=== PATIENT | male | born 1990 | race African-American/Black ===

== ENCOUNTER 2024-06-06 17:16 | Inpatient (IN) | payer OTHER ==
[2024-06-06] MEDS ORDERED: MORPHINE SULFATE/PF 10MG/10ML VL IVP PRN (18:04)
--- NOTE | 2024-06-06 18:04 | ED ---
General Adult HPI - General Chief complaint: Extremity Injury, Lower Stated complaint: R calf pain Time Seen by Provider: 06/06/24 17:23 Source: patient Mode of arrival: wheelchair Limitations: no limitations - History of Present Illness Initial comments: Dictation was produced using [employer] dictation software. please excuse any grammatical, word or spelling errors. Chief Complaint: 33-year-old male with right calf pain History of Present Illness: Patient is 33-year-old male 1 hour ago he started to feel sharp pain in his right calf. Patient states that the pain started to get worse making it difficult for him to even bear weight. Denies any bruising. Patient concerned complaint of paresthesias to his right foot. States that the pain is already get worse wrapping around to the front of his lower leg has history of asthma. No other comorbidities. The ROS documented in this emergency department record has been reviewed and confirmed by me. Those systems with pertinent positive or negative responses have been documented in the HPI. All other systems are other negative and/or noncontributory. - Related Data Allergies Allergy/AdvReac Type Severity Reaction Status Date / Time shellfish derived [Shellfish] Allergy Rash/Hives Verified 06/06/24 17:21 Review of Systems ROS Statement: Those systems with pertinent positive or pertinent negative responses have been documented in the HPI. ROS Other: All systems not noted in ROS Statement are negative. Past Medical History Past Medical History: Asthma Additional Past Medical History / Comment(s): sleep apnea Past Surgical History: No Surgical Hx Reported Smoking Status: Current every day smoker Past Alcohol Use History: Abuse Past Drug Use History: Marijuana General Exam - General Exam Comments Initial Comments: PHYSICAL EXAM: General Impression: Alert and oriented x3, not in acute distress HEENT: Normocephalic atraumatic, extra-ocular movements intact, pupils equal and reactive to light bilaterally, mucous membranes moist. Cardiovascular: Heart regular rate and rhythm Chest: Able to complete full sentences, no retractions, no tachypnea Abdomen: abdomen soft, non-tender, non-distended, no organomegaly Musculoskeletal: Pulses present and equal in all extremities, no peripheral edema Motor: no focal deficits noted Neurological: CN II-XII grossly intact, no focal motor or sensory deficits noted Skin: Intact with no visualized rashes Psych: Normal affect and mood Right lower Extremity; Tight compartments, extremely tight and swollen right calf area Limitations: no limitations Course Vital Signs 06/06/24 17:18 Temperature 97.6 F Pulse Rate 88 Respiratory 16 Rate Blood Pressure 104/68 O2 Sat by Pulse 98 Oximetry - Reevaluation(s) Reevaluation #1: 06/06/24 18:05 Case discussed in detail with [facility]. States that he would recommend that this patient be transferred. Case was discussed with Dr. Watkins from vascular surgery states that this should be an orthopedic issue. Case was then discussed with Dr. Moore of the other Ortho group states that we should try to contact attending physician because this should be taken care of by on-call orthopedic group and that it is an orthopedic issue. Medical Decision Making - Medical Decision Making Was pt. sent in by a medical professional or institution (, [facility], ENGLISH [employer]ANGUAGE [employer]S TEACHER, urgent care, hospital, or care home...) When possible be specific @ -No Did you speak to anyone other than the patient for history (EMS, parent, family, police, friend...)? What history was obtained from this source @ -No Did you review nursing and triage notes (agree or disagree)? Why? @ -I reviewed and agree with nursing and triage notes Were old charts reviewed (outside hosp., previous admission, EMS record, old EKG, old radiological studies, urgent care reports/EKG's, care home records)? Report findings @ -No old charts were reviewed Differential Diagnosis (chest pain, altered mental status, abdominal pain women, abdominal pain men, vaginal bleeding, musculoskeletal, weakness, fever, dyspnea, syncope, headache, dizziness, GI bleed, back pain, seizure, CVA, palpatations, mental health)? @ -Calf tear, Achilles rupture, compartment syndrome EKG interpreted by me (3pts min.). @ -None done X-rays interpreted by me (1pt min.). @ -Hip x-ray shows no occult fractures CT interpreted by me (1pt min.). @ -None done U/S interpreted by me (1pt. min.). @ -None done What testing was considered but not performed or refused? (CT, X-rays, U/S, labs)? Why? @ -None What meds were considered but not given or refused? Why? @ -None Was smoking cessation discussed for >3mins.? @ -No Were there social determinants of health that impacted care today? How? (Homelessness, low income, unemployed, alcoholism, drug addiction, tr ansportation, low edu. Level, literacy, decrease access to med. care, custodial, rehab)? @ -No Was there de-escalation of care discussed even if they declined (Discuss DNR or withdrawal of care, Hospice)? DNR status @ -No What co-morbidities impacted this encounter? (DM, HTN, Smoking, COPD, CAD, Cancer, CVA, ARF, Chemo, Hep., AIDS, mental health diagnosis, sleep apnea, morbid obesity)? @ -None Was patient admitted / discharged? Hospital course, mention meds given and route, prescriptions, significant lab abnormalities, going to OR and other pertinent info. @ - 33-year-old male with painful right calf. Vital signs stable. Physical examination concerning for compartment syndrome. Patient was evaluated bedside by Dr. Goodman stephenson. Dr. Null will take patient to the OR for fasciotomy Did you discuss the management of the patient with other professionals (professionals i.e. , PA, ENGLISH LANGUAGE ARTS TEACHER, lab, RT, psych nurse, renal social worker, peeled potato inspector, teacher, tourist information officer, protective services case worker)? Give summary @ -See above Was critical care preformed (if so, how long)? @ -Yes, 33 minutes Undiagnosed new problem with uncertain prognosis? @ -No Drug Therapy requiring intensive monitoring for toxicity (Heparin, Nitro, Insulin, Cardizem)? @ -No Were any procedures done? @ -No Diagnosis/symptom? Acute, or Chronic, or Acute on Chronic? Uncomplicated (without systemic symptoms) or Complicated (systemic symptoms)? @ -Acute complicated compartment syndrome Side effects of treatment? @ -No Exacerbation, Progression, or Severe Exacerbation? @ -No Poses a threat to life or bodily function? How? (Chest pain, USA, MD, pneumonia, PE, COPD, DKA, ARF, appy, cholecystitis, CVA, Diverticulitis, Homicidal, Suicidal, threat to staff... and all critical care pts) @ -yes Disposition Clinical Impression: Compartment syndrome Disposition: ADMITTED IP TO THIS [facility] Condition: Critical Referrals: Nonstaff,Physician [Primary Care Provider] - 1-2 days Decision Time: 19:01
--- NOTE | 2024-06-06 18:07 | XR ---
EXAMINATION TYPE: XR tibia fibula RT DATE OF EXAM: 06/06/2024 COMPARISON: None HISTORY: Calf pain TECHNIQUE: 2 view right tibia and fibula FINDINGS: No acute fractures or dislocations evident. Joint spaces appear preserved. Soft tissues jairon ear normal. Follow up exams can be performed 7-10 days from acute trauma for continued pain. IMPRESSION: 1. No acute osseous abnormality right tibia and fibula
[2024-06-06] MEDS ORDERED: NALOXONE 0.4 MG/ML 1 ML VIAL IV PRN ×2 (18:58→21:26)
[2024-06-06] MEDS ORDERED: MORPHINE SULFATE 4 MG/ML SYRINGE IV PRN (18:58)
[2024-06-06 18:59] LABS: INR 1.1 (<1.2); Partial Thromboplastin Time 25.5 sec (22.0-30.0); Prothrombin Time 11.6 sec (10.0-12.5)
[2024-06-06 19:00] LABS: Basophils % (A) 0 %; Eosinophils # (A) 0.5 k/uL (0-0.7); Eosinophils % (A) 7 %; HCT 41.5 % (39.0-53.0); HGB 13.9 gm/dL (13.0-17.5); Lymphocytes # (A) 2.4 k/uL (1.0-4.8); Lymphocytes % (A) 31 %; MCH 34.2 pg (25.0-35.0); MCHC 33.6 g/dL (31.0-37.0); MCV 101.9 fL (80.0-100.0); Macrocytosis Slight; Monocytes # (A) 0.6 k/uL (0-1.0); Monocytes % (A) 8 %; Neutrophils # (A) 3.9 k/uL (1.3-7.7); Neutrophils % (A) 51 %; Platelet Count 227 k/uL (150-450); RBC 4.07 m/uL (4.30-5.90); RDW 13.3 % (11.5-15.5); WBC 7.6 k/uL (3.8-10.6)
[2024-06-06 19:04] LABS: African American GFR (CKD) >90 (>60 ml/min/1.73 sqM); Anion Gap 8 mmol/L; Blood Urea Nitrogen 16 mg/dL (9-20); Calcium 9.7 mg/dL (8.4-10.2); Carbon Dioxide 19 mmol/L (22-30); Chloride 106 mmol/L (98-107); Glucose 85 mg/dL (74-99); Non-African American GFR(CKD) >90 (>60 ml/min/1.73 sqM); Potassium 4.3 mmol/L (3.5-5.1); Sodium 133 mmol/L (137-145)
--- NOTE | 2024-06-06 19:09 | P.HPOR ---
History of Present Illness H&P Date: 06/06/24 Chief Complaint: RLE PAIN 33 yo male with hx of asthma, DENEEN on cpap and ETOH abuse presents from [place] with RLE pain and paresthesias. Earlier today he was playing volleyball when he stepped and felt a tearing sensation in his right calf and lower leg as well as a pop. He stated he continued to play on it for a little while but it keept getting worse and worse to the point of not being able to walk on it and having severe pain. He presented to the ED with this pain as well as swelling of the right lower leg. He states numbness and tingling that is starting to go across his toes and into the top of his foot and states that his toes are starting to feel cold. He denies any other injury and states no f/c/sob/cp at this time. He states the pain is getting worse with the swelling and it is getting harder and harder to control. Review of Systems 14 points review of systems completed and as stated in HPI, all other systems reviewed are negative. Past Medical History Past Medical History: Asthma Additional Past Medical History / Comment(s): sleep apnea Past Surgical History: No Surgical Hx Reported Smoking Status: Current every day smoker Past Alcohol Use History: Abuse Past Drug Use History: Marijuana Medications and Allergies Allergies Allergy/AdvReac Type Severity Reaction Status Date / Time shellfish derived [Shellfish] Allergy Rash/Hives Verified 06/06/24 17:21 Physical Examination Osteopathic Statement: *. No significant issues noted on an osteopathic structural exam other than those noted in the History and Physical/Consult. Physical Exam: -Patient is alert and oriented 3 appears well-nourished well-hydrated is in no acute distress. They do not appear septic. -There is TTP of the right calf that is very swollen and taut. He has 10/10 pain with motion of the ankle and palpation of the calf and TA muscles -Upper extremities show [5] out of 5 strength in all major muscle groups. -Lower extremities with [5] out of 5 strength in all major muscle groups Except for DF and PF EHL FHL on the right due to severe pain with any motion of the lower leg on the right. -There is [FROM] that is [painless] of the b/l UE and LE in all major joints. except that stated above of the right lower leg. -They are intact to light touch sensation in C5 to T1 and L2 to S1 nerve distribution. -DTR [2]/4 all upper and lower extremities -Patient has palpable distal pulses all 4 ext. DP and PT on the right are palpable but are 1/4 compared to LLE which are 2/4 -Compartments of the right lower leg are taut, becoming non-compressible and extremely painful to palpation. Absolute pressures >30 on needle measurements of posterior and anterior compartments. LLE compartments are soft and comp ressive. -Patient shows a negative Leidy's of the LLE Cranial nerves II through XII are grossly intact. Respiratory rate is somewhat elevated due to pain during exam. VSS at this time otherwise. Results XR of the right Tib/fib shows no fractures. High degree of swelling noted of the calf and anterior lower leg. Assessment and Plan (1) Compartment syndrome of right lower extremity Current Visit: Yes Status: Acute Code(s): T79.A21A - TRAUMATIC COMPARTMENT SYNDROME OF R LOW EXTREM, INIT SNOMED Code(s): 396563724 (2) Anterior tibial compartment syndrome of right lower extremity Current Visit: Yes Status: Acute Code(s): T79.A21A - TRAUMATIC COMPARTMENT SYNDROME OF R LOW EXTREM, INIT SNOMED Code(s): 781931873 (3) Exertional compartment syndrome of right lower extremity Current Visit: Yes Status: Acute Code(s): M79.A21 - NONTRAUMATIC COMPARTMENT SYNDROME OF RIGHT LOWER EXTREMITY SNOMED Code(s): 237702158759374 Plan: -NPO -Emergent 4 compartment release of the RLE. -Ancef 2 g Pre op -TXA pre op 1g -NWB RLE
--- NOTE | 2024-06-06 19:15 | P.PN ---
Progress Note - Text Progress Note Date: 06/06/24 Orthopedic Surgery Risk Review Marquis Bravo is a 33 yo male presenting for evaluation of sudden onset RLE pain, inability to ambulate after playing volleyball. It was my pleasure to have seen and examined Marquis Bravo . In our visit today we have had a chance to go over subjective complaints, physical examination findings and treatments including the natural course history without intervention and various interventional options. His imaging demonstrates no acute fracture. Profound swelling of the RLE. On physical exam, Marquis Bravo demonstrates pain with motion of RLE with taut minimally compressive compartments which are progressively getting worse. Paresthesias of the right foot, 1/4 pulses DP and PT palpable RLE with severe pain and progressive out of proportion pain of the RLE. I have explained to the patient that this fracture needs stabilization. Based on the patients imaging, physical exam, and the rapid progression and disabling nature of her symptoms, at this time I recommend surgery in the form or a: RLE 4 compartment faciiotomy I discussed the risk and benefits of this procedure at length with Marquis Bravo . Questions were invited and answered, and the patient wishes to proceed as outlined below. Currently, I am recommendin. EMERGENT Right lower extremity four compartment faciiotomy 2. Review of surgical risks and benefits as well as an educational packet on the proposed surgical procedure. Risks: All surgical procedures come with inherent risks, including those related to positioning, anesthesia, intraoperative findings, and postoperative complications. It is important to understand that surgery does not come with any guarantee of a successful outcome as complications and adverse events are always possible. The patient was given a handout discussing the surgical procedure and risks associated with the intervention, both of which were discussed with the patient. These risks include but are not limited to the following: - Experiencing same, different or even worse symptoms compared to before surgery. - Requiring further surgery or other forms of treatment presently or at some time in the future . - On an extreme but fortunately relatively rare basis severe complication such as blindness, stroke, heart attack, temporary and/or permanent nerve injury, paralysis, coma, or may occur, sometimes without known explanation. - Surgical complications may include but are not limited to risk of infection, fluid accumulation in the surgical dissection site, including a seroma or hematoma, that requires additional surgery, wound drainage, bleeding, new numbness or weakness, vision changes/loss, spinal fluid leakage, non-healing and/or infected incision, headaches, difficulty or inability to swallow, hoarseness, hemopneumothorax, pneumothorax, injury to nerves, spinal cord, blood vessels, lymphatics or other vital organs (i.e., bowel injury, injury to the great vessels); heterotopic bone formation; complications related to the hardware such as screws, rods, including misplaced hardware, device failure, hardware fracture/breakage, or hardware loosening; retained surgical instrumentations or devices and the need for further surgery. - Medical risks of the planned surgery include but are not limited to generalized Infections to the whole body or local areas outside of the surgical site (sepsis), heart attack, bleeding, anaphylaxis, meningitis, seizure, epilepsy, hearing loss, burn peterson, laceration of the head or other areas of the body, bruising, hypersensitivity of the skin, bladder over distension; allergic reaction; shoulder injury related to positioning; fat, blood and air clots to other areas of the body like heart, lungs, brain; failure of internal organs such as lungs, kidneys, liver and excessive bleeding. If blood transfusions are necessary, note that transfusions may cause intolerance reactions such as anaphylaxis or other complex reactions. Despite best efforts, the results of surgery might not heal in terms of bone, soft tissues such as skin, fascia, ligaments, and joints. [facility] has multiple operating rooms with single and overlapping rooms running daily. They currently function under the required guidelines as produced by the Senate [employer] Committee with regards to the overlapping rooms and will continue to comply with changes to this policy as they occur. The requirements include and are complied with as follows: (1) the critical portions of the overlapping rooms will not occur at the same time, (2) the attending physician will be physically present during the critical portions of the procedure and immediately available during the entire case, and (3) a back-up attending is designated should the primary attending not be immediately available. The patient has had a chance to review all the listed information, has been given print outs detailing this information, and has had all his/her questions answered to their satisfaction. It was my pleasure to have seen and examined Marquis Bravo . In our visit today we have had a chance to go over my understanding of our patient's current condition, the natural course history without intervention and various interventional options. Questions were invited and answered, and the patient wi shes to proceed as outlined above. I have seen and examined the patient for 25 minutes and we have spent more than 50% of the time in repeat and detailed counseling about the patient's condition, its natural course history with out and as much as can be predicted with surgery and re-review of various surgical treatment options. In conclusion, Marquis Bravo requested we proceed with the above suggested surgery and are willing to accept risks and limitations of the suggested surgery as nature of the disease process and our best attempts at treatment for the cond ition. Thank you again for allowing us to be part of your patient's care. Please don't hesitate to contact me if you have any further questions. Signed and authenticated by: Basilio Pollack [facility] [address] [address]
[2024-06-06] MEDS ORDERED: fentaNYL (PF) 50 MCG/ML 2 ML AMP ONE (19:52)
[2024-06-06] MEDS ORDERED: ONDANSETRON 4 MG/2 ML VIAL ONE (19:52)
[2024-06-06] MEDS ORDERED: MIDAZOLAM 2 MG/2 ML VIAL ONE (19:52)
[2024-06-06] MEDS ORDERED: HYDROmorphone (PF) 1 MG/ML ONE (19:52)
[2024-06-06] MEDS ORDERED: PROPOFOL 10 MG/ML 20 ML VIAL IV ONE (19:52)
[2024-06-06] MEDS ORDERED: TRANEXAMIC 1,000 MG/100ML-NACL PREMIX BAG ONE (19:52)
[2024-06-06] MEDS ORDERED: LIDOCAINE 1% INJ 10MG/ML (20 ML MDV) ONE (19:52)
[2024-06-06] MEDS: LACTATED RINGERS 900 ML IV ONE (19:52)
--- NOTE | 2024-06-06 21:25 | P.OP ---
Date of Procedure: 06/06/24 Preoperative Diagnosis: Current Active Problems Anterior tibial compartment syndrome of right lower extremity (Acute) Compartment syndrome (Acute) Compartment syndrome of right lower extremity (Acute) Exertional compartment syndrome of right lower extremity (Acute) Postoperative Diagnosis: Current Active Problems Intramuscular hematoma (Acute) Compartment syndrome of right lower extremity (Acute) Anterior tibial compartment syndrome of right lower extremity (Acute) Exertional compartment syndrome of right lower extremity (Acute) Compartment syndrome (Acute) Procedure(s) Performed: 4 COMPARTMENT FACIIOTOMY RIGHT LOWER LEG EVACUATION OF HEMATOMA RIGHT LOWER LEG IRRIGATION AND DEBRIDEMENT OF RIGHT LOWER LEG SKIN, SOFT TISSUE, FACIA AND MUSCLE USING SKIN KNIFE, IRRIGANT, CURETTES PLACEMENT OF WOUND VAC RIGHT LOWER LEG Implants: WOUND VAC RIGHT LOWER LEG Anesthesia: MAC Surgeon: Basilio Null Estimated Blood Loss (ml): 260 IV fluids (ml): 1,500 Urine output (ml): 0 Pathology: none sent Condition: stable Disposition: PACU Indications for Procedure: Marquis Bravo is a 33 yo male presenting for evaluation of sudden onset RLE pain, inability to ambulate after playing volleyball. It was my pleasure to have seen and examined Marquis Bravo . In our visit today we have had a chance to go over subjective complaints, physical examination findings and treatments including the natural course history without intervention and various interventional options. His imaging demonstrates no acute fracture. Profound swelling of the RLE. On physical exam, Marquis Bravo demonstrates pain with motion of RLE with taut minimally compressive compartments which are progressively getting worse. Paresthesias of the right foot, 1/4 pulses DP and PT palpable RLE with severe pain and progressive out of proportion pain of the RLE. I have explained to the patient that this fracture needs stabilization. Based on the patients imaging, physical exam, and the rapid progression and disabling nature of her symptoms, at this time I recommend surgery in the form or a: RLE 4 compartment faciiotomy I discussed the risk and benefits of this procedure at length with Marquis Bravo . Questions were invited and answered, and the patient wishes to proceed as outlined below. Currently, I am recommendin. EMERGENT Right lower extremity four compartment faciiotomy Description of Procedure: The patient was seen and examined in the preoperative area. All preoperative protocols were followed. Informed consent was obtained risks and benefits of the procedure were discussed at length. Risks including bleeding infection damage to the surrounding tissue and risk of reoperation were discussed with the patient. Risk of anesthesia up to and including was a discussed with the patient. These are outlined in the risk reviewed. They were willing to accept these risks and all of the risks of surgery. The patient was given a weight- based dose of antibiotics in the form of 2 g Ancef. The patient was seen and evaluated by the anesthesia team who deemed them fit for surgery. The site was marked, the patient was willing to proceed with the procedure. The patient was transferred to the operative suite by the Department of anesthesia. There were then drifted off to sleep by the department of anesthesia and [facility] was used. Once adequate anesthesia had been obtained the patient was carefully transferred to the operative bed. All bony prominences were padded accordingly. SCDs were placed on the nonoperative lower extremities. Arms were well padded. Right lower extremity was exposed and placed on a bone foam ramp which was secured to the table. A bump was placed in the patient's right hip. Preoperative briefing was done with the operative team and everyone was ready for the procedure to start. The patients Right leg was then prepped and draped in the normal sterile fashion. Timeout was then performed and all parties in agreement with the procedure to be performed. Longitudinal anterior lateral incision was made for anterior and lateral compartment release. Incision was made between the tibial crest and the fibula. Dissection was taken on the fascia was identified the intermuscular septum was identified. Small neck and intermuscular septa was made anterior to the intermuscular septum and a Williamson scissors introduced into this area and the fascia was then released taking care to preserve the superficial peroneal nerve. We have performed this on the lateral compartment just posterior to the intermuscular septum. Complete fascial release was achieved proximally and distally. Muscle is viable and good coloration. We then turned our attention to the medial compartment and the posterior compartment. Longitudinal incision was made to centers posterior to the tibial crest. Dissection taken down to the saphenous nerve and vein were identified and mobilized were retracted. Fasciotomy was then made using Williamson scissors a similar fashion proximally and distally this revealed extremely swollen and damaged muscle tissue. Blunt disse ction was then used to release the posterior compartment deep as well as superficial. The superficial posterior compartment there was a large intramuscular hematoma which was expressed in between the gastroc medial head and the soleus. The medial head of the gastroc was extremely swollen and appeared to be torn in several areas secondary to his presumed injury. There were bleeding vessels identified distally which were clamped and then cauterized deep bleeding vessels were also clamped and clipped. These were all tributaries from the posterior tibial. Doppler of the posterior tibia at the ankle was then done and there was good dopplerable as well as palpable pulse. The dorsalis pedis pulse is also palpable and dopplerable in this area. Toes all had brisk capillary refill less than 2 seconds. The wounds were then thoroughly irrigated with nORMAL STERILE SALINE. The lateral incision was then closed under little to no tension deep subcu tissue was closed with 0 Vicryl superficial subcu tissue closed with 2-0 Vicryl and skin closed with a running trauma 2-0 nylon. The medial incision was too taut for closure however some stay sutures were placed to prevent skin retraction. The wound were then cleaned well and A wound VAC was then selected and placed over the medial incision. Wound VAC dressing was then placed along with Adaptic 4 x 4 ABDs on the lateral incision. Once the wound VAC was attached there was good seal and no leaks. This is then overwrapped with a light Chris wrap to aid in swelling. The patient was then transferred back to their hospital bed. There were awakened by department of anesthesia having tolerated the procedure very well with no complications. The patient was then transported to the postoperative care unit in stable condition.
[2024-06-06] MEDS ORDERED: RX INFO: IV CONTRAST WAS GIVEN 1 EACH MISC MISCELLANE PRN (21:31)
--- NOTE | 2024-06-06 21:41 | P.PN ---
Progress Note - Text Progress Note Date: 06/06/24 (\) Postop: . Patient seen and examined they are doing well. Their pain is under control at this time. They are moving all 4 extremities without any issues. Vital signs are stable.. They are currently recovering and will be transferred to the floor once deemed stable by the PACU team and anesthesiologist. No Other issues at this time they deny fever chills shortness of breath or chest pain. Patient is following commands and wiggling toes he has sensation in all aspects of the right lower extremity. Palpable DP and PT pulses. Brisk capillary refill. [Medical management pending] [Continue with intravenous fluids, pain medication, muscle relaxers, home medication] [Soft diet to start to advance as tolerated] We will evaluate the patient in the morning.
[2024-06-06] MEDS: SODIUM CHLORIDE 0.9% 1,000 ML IV SCH ×2 (22:43→23:33)
[2024-06-06] MEDS: diphenhydrAMINE 50 MG/ML 1 ML VIAL IVP STA ×2 (23:00→23:59)
[2024-06-06] MEDS: HYDROmorphone PCA 10 MG/50 ML BAG IV PRN (23:04)
[2024-06-06] MEDS: TRANEXAMIC ACID 1,000 MG in SODIUM CHLORIDE 0.9% 100 ML IVPB ONE ×2 (23:13→23:14)
[2024-06-06] MEDS: ACETAMINOPHEN IV (For NPO) 1,000 MG in EMPTY BAG 1 BAG IVPB SCH (23:57)
[2024-06-07] MEDS: GABAPENTIN 300 MG CAP PO SCH (00:11)
[2024-06-07] MEDS: LORazepam 2 MG/ML INJ IV STA (01:14)
[2024-06-07] MEDS ORDERED: LORazepam 0.5 MG TAB PO PRN (02:31)
[2024-06-07] MEDS ORDERED: LORazepam 2 MG/ML INJ IV PRN ×2 (02:31)
--- NOTE | 2024-06-07 03:12 | P.CONS ---
History of Present Illness - Reason for Consult Consult date: 06/07/24 medical management - Chief Complaint right leg compartment syndrome - History of Present Illness Patient is a 33-year-old male with with chronic alcohol abuse, was admitted here due to right lower extremity swelling secondary to acute compartment syndrome. Patient status post right lower extremity fasciotomy postop day 0. Patient seen at bedside no acute complaints of pain. However, he has ongoing complaint of diffuse pruritus. He states it occurred as soon as he finished surgery yesterday. Is causing the take off his close and get out of bed. States this has never happened before. Denies any symptoms of shortness of breath, chest pain, swelling, fever, chills, nausea, headache, confusion. Last alcoholic beverage was 9 days ago Review of systems: Pertinent positives and negatives as discussed in HPI, a complete review of systems was performed and all other systems are negative. Social history: Tobacco: Current 1 pack/day smoker for the past 10 years Alcohol: Patient states he drinks 2-3 fifths of shilpi daily, states he quit Thursday Recreational drugs: Denies drug use Physical examination: Vital signs reviewed General: non toxic, appears at stated age, obese, appears agitated, constantly itching Derm: no unusual rashes/lesions, warm, multiple diffuse excoriations Head: atraumatic, normocephalic, symmetric Eyes: EOMI, anicteric sclera, pupils equal round reactive to light Cardiovascular: S1S2 reg, no murmur, no edema Lungs: CTA bilateral, no rhonchi, no rales, no accessory muscle use Abdominal: soft, non-tender to palpation, no guarding Ext: muscle strength 5 out of 5 in all 4 extremities grossly, with some limitations over the right lower extremity due to surgery no gross muscle atrophy, wound dressing on right lower extremity Neuro: CN II-XI grossly intact, no gross focal neuro deficits Psych: Alert and oriented to person, place, and time Assessment/Plan: Patient is a 33-year-old male with with chronic alcohol abuse, was admitted here due to right lower extremity swelling secondary to acute compartment syndrome. Patient status post right lower extremity fasciotomy postop day 0. #. Pruritus, unknown etiology No signs of allergic reaction or anaphylaxis Was given Benadryl 25 mg IVP once Continue to monitor symptoms Benadryl 25 mg IV push every 6 hours as needed for itching #. Chronic alcohol abuse [facility] protocol Ativan as needed per [facility] protocol Thiamine 100 mg p.o. daily Seizure and fall precaution #. Normal anion gap metabolic acidosis #. Mild hyponatremia Patient asymptomatic Likely due to excess fluid infusion Continue to monitor BMP #. History of asthma Continue singular 10 mg tab p.o. daily Continue Spiriva 1 Inhalation daily #. History of anxiety Lexapro continue 10 mg p.o. daily #. Status post right lower extremity fasciotomy Being seen by wound care Being managed by primary surgery service Defer management of pain control and DVT prophylaxis to primary surgery service. Rest of labs unremarkable, no pertinent imaging F: NS at 20 cc/hr E: Replete electrolytes as needed N: Currently NPO A: Patient ambulatory Past Medical History Past Medical History: Asthma Additional Past Medical History / Comment(s): sleep apnea Past Surgical History: No Surgical Hx Reported Smoking Status: Current every day smoker Past Alcohol Use History: Abuse Past Drug Use History: Marijuana Medications and Allergies Home Medications Medication Instructions Recorded Confirmed Type Albuterol Inhaler [Ventolin Hfa 1 - 2 puff INHALATION Q6H PRN 06/06/24 06/06/24 History Inhaler] Albuterol Nebulized [Ventolin 1 neb BID PRN 06/06/24 06/06/24 History Nebulized] Chlorpheniramine Maleate 4 mg PO Q4HR PRN 06/06/24 06/06/24 History [Chlor-Trimeton] Escitalopram [Lexapro] 10 mg PO DAILY 06/06/24 06/06/24 History Fluticasone Nasal [place] [Flonase 2 spray EA NOSTRIL DAILY 06/06/24 06/06/24 History Nasal [place]] Ibuprofen [Motrin] 600 mg PO Q6HR PRN 06/06/24 06/06/24 History Menthol [Icy Hot] 1 patch TRANSDERM DAILY PRN 06/06/24 06/06/24 History Montelukast [Singulair] 10 mg PO DAILY 06/06/24 06/06/24 History Omeprazole 40 mg PO DAILY 06/06/24 06/06/24 History Tiotropium [place] [Spiriva 1 cap INHALATION DAILY 06/06/24 06/06/24 History Handihaler] Allergies Allergy/AdvReac Type Severity Reaction Status Date / Time shellfish derived [Shellfish] Allergy Rash/Hives Verified 06/06/24 20:02 Physical Exam Vitals: Vital Signs Temp Pulse Pulse Pulse Resp BP BP 06/06/24 22:22 97.8 F 90 17 132/70 06/06/24 21:45 95 18 112/68 06/06/24 21:30 90 18 115/57 06/06/24 21:17 97.7 F 97 18 119/63 06/06/24 19:32 97.1 F L 79 18 124/79 06/06/24 17:18 97.6 F 88 16 104/68 Pulse Ox 06/06/24 22:22 93 L 06/06/24 21:45 96 06/06/24 21:30 95 06/06/24 21:17 96 06/06/24 19:32 96 06/06/24 17:18 98 Intake and Output 06/06/24 06/06/24 06/07/24 14:59 22:59 06:59 Intake Total 750 Output Total 260 Balance 490 Intake: IV 750 Output: Estimated Blood Loss 260 Other: Weight 95.254 kg Results CBC & Chem 7: 06/06/24 18:29 06/06/24 18:29 Labs: Abnormal Lab Results - Last 24 Hours (Table) 06/06/24 06/06/24 Range/Units 18:29 18:29 RBC 4.07 L (4.30-5.90) m/uL MCV 101.9 H (80.0-100.0) fL Sodium 133 L (137-145) mmol/L Carbon Dioxide 19 L (22-30) mmol/L Assessment and Plan Assessment: This encounter was supervised by Dr. Amberly solano O2 is utilizing Dr. Flaherty's account due to technical difficulties I saw and examined the patient independently I discussed the case with the resident and agree with H&P and assessment and plan which was amended as needed
[2024-06-07] MEDS: PANTOPRAZOLE 40 MG TABLET PO SCH (06:47)
[2024-06-07] MEDS: LORazepam 2 MG/ML INJ IV PRN (08:21)
[2024-06-07] MEDS: diphenhydrAMINE 50 MG/ML 1 ML VIAL IVP PRN (08:22)
[2024-06-07] MEDS: MONTELUKAST 10 MG TAB PO SCH (08:22)
[2024-06-07] MEDS: ESCITALOPRAM 10 MG TAB PO SCH (08:22)
[2024-06-07] MEDS: IPRATROPIUM 0.5 MG/2.5 ML NEBU INHALATION SCH (09:37)
--- NOTE | 2024-06-07 12:58 | CT ---
EXAMINATION TYPE: CT angio lower extremity RT DATE OF EXAM: 06/07/2024 COMPARISON: None HISTORY: 32-year-old male Intramuscular hematoma. Assess for continued extravasation. TECHNIQUE: Contiguous axial scanning of the right lower extremity performed with IV Contrast, patient injected with 100ml mL of Isovue 370. Coronal and sagittal reconstructions performed. 3-D reconstruc tions generated on a dedicated independent workstation. CT DLP: 1451.2 mGycm Automated exposure control for dose reduction was used. FINDINGS: Prostate gland borderline in size at 4.0 cm. The right-sided internal, external, and common iliac arteries appear patent and normal. PSA, PSA, and SFA appear patent and normal. Prominent bruising and poorly defined hemorrhage along the right lateral aspect of the lower thigh an d knee and in the popliteal fossa and tracking superiorly as well. No evidence of injury of the popliteal artery. Geniculate branches above the knee course through regions of hemorrhage but no active arterial extrav asation is clearly identified. Normal takeoff of the anterior tibial artery and normal tibial peroneal trunk. The posterior tibial artery is slightly hypoplastic but there is a prominent contribution from the pe roneal artery just above the level of the ankle. A couple surgical clips are noted along the medial margin of the posterior tibial artery at the dista l third leg level. Again, no arterial extravasation is identified. There is satisfactory runoff into the foot. Prominent soft tissue injury throughout the leg with generalized soft tissue swelling, bruising, and scattered foci of air especially along the superficial fascia of the proximal to mid leg laterally. E juju is present along the deeper flasher complains as well. No acute or healing fracture is seen. IMPRESSION: 1. A COUPLE SURGICAL CLIPS NOTED ALONG THE MEDIAL MARGIN OF THE POSTERIOR TIBIAL ARTERY AT THE LEVEL OF THE LOWER THIRD LEG LEVEL. 2. THERE IS GENERALIZED SOFT TISSUE SWELLING AND BRUISING THROUGHOUT THE RIGHT LOWER EXTREMITY. EDEMA IS ALSO PRESENT ALONG THE DEEPER FASCIAL PLANES. FOCI OF AIR ESPECIALLY LATERALLY ALONG THE UPPER LE G AND POORLY DEFINED SOFT TISSUE HEMORRHAGE EXTENDING UP ALONG THE LATERAL AND POSTERIOR ASPECT OF TH E KNEE. GIVEN THE DEEPER EDEMA, THE PATIENT SHOULD BE MONITORED TO EXCLUDE THE DEVELOPMENT OF COMPART MENT SYNDROME. NO VASCULAR COMPROMISE IDENTIFIED AT THIS TIME. 3. NO CONVINCING FINDINGS OF ACTIVE ARTERIAL EXTRAVASATION.
--- NOTE | 2024-06-07 13:32 | P.PN ---
Subjective Progress Note Date: 06/07/24 Principal diagnosis: Compartment syndrome right lower extremity, status post 4 compartment fasciotomy, hematoma evacuation, I&D patient was examined today at bedside, he was resting comfortably in his hospital bed. The wound VAC is holding good compression at this time, and Chris bandages present to the right lower extremity. Patient does note some generalized discomfort along the medial aspect of the lower leg. He does feel improvement since before surgery yesterday. He has good sensation throughout the entire extremity. Denies any fevers or chills at this time. He feels that the itching is also improving. Objective - Vital Signs Vital signs: Vital Signs Temp 97.7 F 06/07/24 07:05 Pulse 84 06/07/24 09:47 Resp 18 06/07/24 07:05 BP 112/67 06/07/24 07:05 Pulse Ox 97 06/07/24 07:05 FiO2 Intake & Output 06/06/24 06/07/24 06/07/24 18:59 06:59 18:59 Intake Total 750 Output Total 560 700 Balance 190 -700 Weight 95.254 kg 95.254 kg Intake: IV 750 Output: Urine 300 700 Estimated Blood Loss 260 Other: Voiding Method Urinal Urinal # Voids 1 - Exam Right lower extremity: Chris bandages present to the right lower extremity. Wound VAC is in good position and holding suction at this time. Sensation to light touch throughout the extremity is intact. Dorsalis pedis pulses 2+. The skin is warm to touch. There is some minor swelling noted in the calf region, compartments remain soft and compressible - Labs CBC & Chem 7: 06/06/24 18:29 06/06/24 18:29 Labs: Abnormal Lab Results - Last 24 Hours (Table) 06/06/24 06/06/24 Range/Units 18:29 18:29 RBC 4.07 L (4.30-5.90) m/uL MCV 101.9 H (80.0-100.0) fL Sodium 133 L (137-145) mmol/L Carbon Dioxide 19 L (22-30) mmol/L Assessment and Plan Assessment: Postoperative day #1 status post 4 compartment fasciotomy right lower extremity, hematoma evacuation, I&D right lower extremity Compartment syndrome right lower extremity Plan: Pain control, continue with current medication DVT prophylaxis, medical recommendations appreciated wound care, leave Chris bandage in place at this time, plan for dressing change at bedside on 06/08/2024. Continue to monitor wound VAC suction toe-touch weightbearing right lower extremity encourage incentive spirometer medical recommendations appreciated patient is scheduled for revision I&D with hopeful wound closure on 06/09/2024, will continue to follow during hospital stay Time with Patient: Less than 30
--- NOTE | 2024-06-07 13:57 | P.PN ---
Subjective Progress Note Date: 06/07/24 Hospital course: Patient is a 33-year-old male with a past medical history of chronic daily alcohol abuse, daily marijuana use and asthma/COPD with continued nicotine dependence. He is currently admitted under orthopedic surgery team status post right lower extremity fasciotomy secondary to compartment syndrome. Patient underwent right lower extremity fasciotomy on 06/06/2024 after diagnosis of acute exertional right lower extremity compartment syndrome. We were consulted for medical management throughout hospitalization. Physical exam: Vital signs reviewed and stable. General: Nontoxic, no distress and appears stated age. Derm: Skin warm and dry, normal coloration for ethnicity. Head: Atraumatic, normocephalic and symmetric. Eyes: EOM's intact, no lid lag, and anicteric sclera Mouth: no lip lesions, mucus membranes moist Cardiovascular: regular rate and rhythm with normal S1S2, no murmur, positive posterior tibial pulses bilaterally, and cap refill < 2 seconds. Lungs: Respirations even, regular, and unlabored on room air. Lungs CTA bilaterally, no rhonchi, no rales, no wheezing, and no accessory muscle usage. Abdominal: soft, nontender to palpation, no guarding, no appreciable organomegaly Ext: Movement and sensation intact. No gross muscle atrophy, no edema, no contractures. Wound VAC in place right lower extremity. Neuro: Speech clear, face symmetrical and CN II-XII grossly intact with no noted focal neuro deficits Psych: Alert and oriented to person, place, time, and situation. Appropriate and pleasant affect. Assessment and Plan of Care: Patient is a 33-year-old male with with chronic alcohol abuse, was admitted here due to right lower extremity swelling secondary to acute compartment syndrome. Patient status post right lower extremity fasciotomy postop day 1. Acute exertional right lower extremity compartment syndrome Status post right lower extremity fasciotomy -Management per primary admitting orthopedic surgery team including DVT prophylaxis, pain management, dressing and wound VAC management, weightbearing, and PT/OT. Pruritus, unknown etiology -No signs of allergic reaction or anaphylaxis -Continue to monitor symptoms -Continue IV Benadryl and patient placed on oral Benadryl 25 mg every 6 hours as needed for itching Chronic alcohol abuse Normal anion gap metabolic acidosis, likely secondary to daily alcohol abuse Mild hyponatremia, likely secondary to daily alcohol abuse -Continue monitoring of CIWA scores and patient to be medicated with Ativan 0.5 mg every 4 hours as needed for CIWA score of 4-5, Ativan 1 mg every 4 hours for CIWA score of 6-7, Ativan 2 mg every 3 hours CIWA score of 8-9, and Ativan 2 mg every 2 hours forr CIWA score of 10 or greater. -Thiamine 100 mg daily, and Multivitamin daily, and Folate 1 mg daily -Seizure and fall precautions in place. -Continued close monitoring of electrolytes and replace as needed. -Telemetry monitoring. History of asthma/COPD with continued nicotine dependence -Continue singular 10 mg daily and Spiriva 1 puff Inhalation daily -Recommend smoking cessation. Orders placed for nicotine patch 21 mg daily. History of anxiety -Continue Lexapro 10 mg daily Thank you for allowing us to participate in the care of this pleasant patient. Do not hesitate to contact us with questions. Someone can be reached from the [facility] hospitalist group all hours of the day at [phone] or via [employer]. Patient was seen independently by Nurse Pracitioner. This document was prepared using [employer] dictation software. Please allow for errors in filter tank tender, while rare they do occur. Sachin Kemp NP rendered care for this patient independently, reviewed the findings and plan as documented in the note above. I did not physically speak with or examine the patient on this date. Objective - Vital Signs Vital signs: Vital Signs Temp 97.8 F 06/07/24 02:45 Pulse 88 06/07/24 02:45 Resp 18 06/07/24 02:45 BP 136/88 06/07/24 02:45 Pulse Ox 95 06/07/24 02:45 FiO2 Intake & Output 06/06/24 06/07/24 06/07/24 18:59 06:59 18:59 Intake Total 750 Output Total 560 Balance 190 Weight 95.254 kg 95.254 kg Intake: IV 750 Output: Urine 300 Estimated Blood Loss 260 Other: Voiding Method Urinal - Labs CBC & Chem 7: 06/06/24 18:29 06/06/24 18:29 Labs: Abnormal Lab Results - Last 24 Hours (Table) 06/06/24 06/06/24 Range/Units 18:29 18:29 RBC 4.07 L (4.30-5.90) m/uL MCV 101.9 H (80.0-100.0) fL Sodium 133 L (137-145) mmol/L Carbon Dioxide 19 L (22-30) mmol/L
[2024-06-07] MEDS: NICOTINE 21MG/24HR PATCH TRANSDERM SCH (15:50)
[2024-06-08] MEDS: diphenhydrAMINE 25 MG CAP PO PRN (00:38)
[2024-06-08] MEDS: LORazepam 1 MG TAB PO PRN (02:35)
[2024-06-08] MEDS: THIAMINE 100 MG TAB PO SCH (08:21)
[2024-06-08] MEDS: SENNOSIDES 8.6 MG TAB PO PRN (08:21)
--- NOTE | 2024-06-08 12:52 | P.PN ---
Subjective Progress Note Date: 06/08/24 Principal diagnosis: Compartment syndrome right lower extremity, status post 4 compartment fasciotomy, hematoma evacuation, I&D patient was examined today at bedside, he was resting comfortably in his hospital bed. The wound VAC is holding good compression at this time, and Chris bandages present to the right lower extremity. patient has a little bit more pain in the extremity compared to yesterday. He has good sensation throughout the entire extremity. Denies any fevers or chills at this time. Patient did deal with further itching today, we did discontinue the IV antibiotic. Objective - Vital Signs Vital signs: Vital Signs Temp 98.4 F 06/08/24 08:00 Pulse 84 06/08/24 09:02 Resp 17 06/08/24 08:00 BP 127/71 06/08/24 08:00 Pulse Ox 95 06/08/24 08:00 FiO2 Intake & Output 06/07/24 06/08/24 06/08/24 18:59 06:59 18:59 Output Total 1700 1200 Balance -1700 -1200 Output: Urine 1700 1200 Other: Voiding Method Urinal Toilet Urinal # Voids 1 - Exam Right lower extremity: Chris bandages present to the right lower extremity. Wound VAC is in good position and holding suction at this time. Sensation to light touch throughout the extremity is intact. Dorsalis pedis pulses 2+. The skin is warm to touch. There is some minor swelling noted in the calf region, compartments remain soft and compressible - Labs CBC & Chem 7: 06/06/24 18:29 06/06/24 18:29 Assessment and Plan Assessment: Postoperative day #2 status post 4 compartment fasciotomy right lower extremity, hematoma evacuation, I&D right lower extremity Compartment syndrome right lower extremity Plan: Pain control, continue with current medication DVT prophylaxis, medical recommendations appreciated wound care, leave Chris bandage in current position, continue to monitor wound VAC N.p.o. after midnight toe-touch weightbearing right lower extremity encourage incentive spirometer medical recommendations appreciated patient is scheduled for revision I&D with hopeful wound closure on 06/09/2024, will continue to follow during hospital stay Time with Patient: Less than 30
--- NOTE | 2024-06-08 14:20 | P.PN ---
Subjective Progress Note Date: 06/08/24 Hospital course: Patient is a 33-year-old male with a past medical history of chronic daily alcohol abuse, daily marijuana use and asthma/COPD with continued nicotine dependence. He is currently admitted under orthopedic surgery team status post right lower extremity fasciotomy secondary to compartment syndrome. Patient underwent right lower extremity fasciotomy on 06/06/2024 after diagnosis of acute exertional right lower extremity compartment syndrome. We were consulted for medical management throughout hospitalization. Physical exam: Patient seen and fully evaluated at bedside. He reports moderate pain in right lower extremity rating 7 out of 10 at this time. Wound VAC remains in place. Patient denies any other complaints or concerns at this time. Patient denies having any EtOH withdrawal symptoms at this time. Vital signs reviewed and stable. General: Nontoxic, no distress and appears stated age. Derm: Skin warm and dry, normal coloration for ethnicity. Head: Atraumatic, normocephalic and symmetric. Eyes: EOM's intact, no lid lag, and anicteric sclera Mouth: no lip lesions, mucus membranes moist Cardiovascular: regular rate and rhythm with normal S1S2, no murmur, positive posterior tibial pulses bilaterally, and cap refill < 2 seconds. Lungs: Respirations even, regular, and unlabored on room air. Lungs CTA bilaterally, no rhonchi, no rales, no wheezing, and no accessory muscle usage. Abdominal: soft, nontender to palpation, no guarding, no appreciable organomegaly Ext: Movement and sensation intact. No gross muscle atrophy, no edema, no contractures. Wound VAC in place right lower extremity with mild right sided lower extremity edema and bruising. Neuro: Speech clear, face symmetrical and CN II-XII grossly intact with no noted focal neuro deficits Psych: Alert and oriented to person, place, time, and situation. Appropriate and pleasant affect. Assessment and Plan of Care: Patient is a 33-year-old male with with chronic alcohol abuse, was admitted here due to right lower extremity swelling secondary to acute compartment syndrome. Patient status post right lower extremity fasciotomy postop day 1. Acute exertional right lower extremity compartment syndrome Status post right lower extremity fasciotomy -Management per primary admitting orthopedic surgery team including DVT prophylaxis, pain management, dressing and wound VAC management, weightbearing, and PT/OT. Pruritus, unknown etiology -No signs of allergic reaction or anaphylaxis -Continue to monitor symptoms -Continue IV Benadryl and patient placed on oral Benadryl 25 mg every 6 hours as needed for itching Chronic alcohol abuse Normal anion gap metabolic acidosis, likely secondary to daily alcohol abuse Mild hyponatremia, likely secondary to daily alcohol abuse -Continue monitoring of CIWA scores and patient to be medicated with Ativan 0.5 mg every 4 hours as needed for CIWA score of 4-5, Ativan 1 mg every 4 hours for CIWA score of 6-7, Ativan 2 mg every 3 hours CIWA score of 8-9, and Ativan 2 mg every 2 hours forr CIWA score of 10 or greater. -Thiamine 100 mg daily, and Multivitamin daily, and Folate 1 mg daily -Seizure and fall precautions in place. -Continued close monitoring of electrolytes and replace as needed. -Telemetry monitoring. History of asthma/COPD with continued nicotine dependence -Continue singular 10 mg daily and Spiriva 1 puff Inhalation daily -Recommend smoking cessation. Orders placed for nicotine patch 21 mg daily. History of anxiety -Continue Lexapro 10 mg daily Vital signs reviewed. Blood pressure 127/71, heart rate 102, respiratory rate 17, temp 98.4 F, and SpO2 of 95% on room air. Thank you for allowing us to participate in the care of this pleasant patient. Do not hesitate to contact us with questions. Someone can be reached from the [facility] hospitalist group all hours of the day at [phone] or via [employer] serve. Patient was seen independently by Nurse Pracitioner. This document was prepared using [employer] dictation software. Please allow for errors in buildings and grounds coordinator, while rare they do occur. .Sachin Kemp NP rendered care for this patient independently, reviewed the findings and plan as documented in the note above. I did not physically speak with or examine the patient on this date. Objective - Vital Signs Vital signs: Vital Signs Temp 98.4 F 06/08/24 08:00 Pulse 84 06/08/24 08:37 Resp 17 06/08/24 08:00 BP 127/71 06/08/24 08:00 Pulse Ox 95 06/08/24 08:00 FiO2 Intake & Output 06/07/24 06/08/24 06/08/24 18:59 06:59 18:59 Output Total 1700 1200 Balance -1700 -1200 Output: Urine 1700 1200 Other: Voiding Method Urinal Toilet Urinal # Voids 1 - Labs CBC & Chem 7: 06/09/24 04:49 06/09/24 04:49
[2024-06-08] MEDS: CYCLOBENZAPRINE 10 MG TAB PO PRN (19:53)
[2024-06-09 07:53] VITALS: RESP 16
[2024-06-09 09:06] LABS: ALT 75 U/L (10-49); AST 28 U/L (14-35); Albumin 4.1 g/dL (3.8-4.9); Albumin/Globulin Ratio 2.05 Ratio (1.60-3.17); Alkaline Phosphatase 68 U/L (41-126); BUN/Creat Ratio 7.38 Ratio (12.00-20.00); Blood Urea Nitrogen 5.9 mg/dL (9.0-27.0); Calcium 9.1 mg/dL (8.7-10.3); Carbon Dioxide 22.8 mmol/L (21.6-31.8); Chloride 102 mmol/L (96-109); Glucose 86 mg/dL (70-110); HCT 34.9 % (39.6-50.0); HGB 11.8 g/dL (13.0-17.0); MCH 34.2 pg (27.0-32.0); MCHC 33.8 g/dL (32.0-37.0); MCV 101.2 FL (80.0-97.0); Magnesium 1.7 mg/dL (1.5-2.4); Mean Platelet Volume 10.2 FL (9.5-12.2); NRBC Per 100 WBC 0 X 10*3/uL (0.00-0.01); Platelet Count 277 X 10*3/uL (140-440); Potassium 4.5 mmol/L (3.5-5.5); RBC 3.45 X 10*6/uL (4.40-5.60); RDW 12.8 % (11.5-14.5); Sodium 134 mmol/L (135-145); Total Bilirubin 0.4 mg/dL (0.3-1.2); Total Protein 6.1 g/dL (6.2-8.2); WBC 7.31 X 10*3/uL (4.50-10.00)
[2024-06-09] MEDS: LACTATED RINGERS 1,000 ML IV ONE ×2 (12:20→14:29)
[2024-06-09] MEDS: ONDANSETRON 4 MG/2 ML VIAL IVP PRN (12:58)
[2024-06-09] MEDS: DEXAMETHASONE SOD PHOSPHATE 4 MG/ML 1 ML VIAL IVP STA (12:59)
[2024-06-09] MEDS ORDERED: MIDAZOLAM 2 MG/2 ML VIAL ONE (13:34)
[2024-06-09] MEDS ORDERED: fentaNYL (PF) 50 MCG/ML 2 ML AMP ONE (13:34)
[2024-06-09] MEDS ORDERED: PROPOFOL 10 MG/ML 20 ML VIAL IV ONE (13:34)
[2024-06-09] MEDS: SODIUM CHLORIDE 0.9% 100 ML with ceFAZolin 2,000 MG IV ONE (13:37)
--- NOTE | 2024-06-09 13:38 | P.PN ---
Subjective Progress Note Date: 06/09/24 Hospital course: Patient is a 33-year-old male with a past medical history of chronic daily alcohol abuse, daily marijuana use and asthma/COPD with continued nicotine dependence. He is currently admitted under orthopedic surgery team status post right lower extremity fasciotomy secondary to compartment syndrome. Patient underwent right lower extremity fasciotomy on 06/06/2024 after diagnosis of acute exertional right lower extremity compartment syndrome. We were consulted for medical management throughout hospitalization. Physical exam: Patient seen and fully evaluated at bedside. He reports moderate pain in right lower extremity rating 9 out of 10 at this time. Wound VAC remains in place. Patient scheduled to undergo revision I&D later today. He denies any other complaints or concerns at this time. Patient denies having any EtOH withdrawal symptoms at this time. Vital signs reviewed and stable. General: Nontoxic, no distress and appears stated age. Derm: Skin warm and dry, normal coloration for ethnicity. Head: Atraumatic, normocephalic and symmetric. Eyes: EOM's intact, no lid lag, and anicteric sclera Mouth: no lip lesions, mucus membranes moist Cardiovascular: regular rate and rhythm with normal S1S2, no murmur, positive posterior tibial pulses bilaterally, and cap refill < 2 seconds. Lungs: Respirations even, regular, and unlabored on room air. Lungs CTA bilaterally, no rhonchi, no rales, no wheezing, and no accessory muscle usage. Abdominal: soft, nontender to palpation, no guarding, no appreciable organomegaly Ext: Movement and sensation intact. No gross muscle atrophy, no edema, no contractures. Wound VAC in place right lower extremity with mild right sided lower extremity edema and bruising. Neuro: Speech clear, face symmetrical and CN II-XII grossly intact with no noted focal neuro deficits Psych: Alert and oriented to person, place, time, and situation. Appropriate and pleasant affect. Assessment and Plan of Care: Patient is a 33-year-old male with with chronic alcohol abuse, was admitted here due to right lower extremity swelling secondary to acute compartment syndrome. Patient status post right lower extremity fasciotomy postop day 3. Acute exertional right lower extremity compartment syndrome Status post right lower extremity fasciotomy -Management per primary admitting orthopedic surgery team including DVT prophyla xis, pain management, dressing and wound VAC management, weightbearing, and PT/OT. -Patient is scheduled to undergo revision I&D later today with possible closure of fasciotomy wound. Pruritus, unknown etiology -No signs of allergic reaction or anaphylaxis -Continue to monitor symptoms -Continue oral Benadryl 25 mg every 6 hours as needed for itching Chronic alcohol abuse Normal anion gap metabolic acidosis, likely secondary to daily alcohol abuse Mild hyponatremia, likely secondary to daily alcohol abuse -Continue monitoring of CIWA scores and patient to be medicated with Ativan 0.5 mg every 4 hours as needed for CIWA score of 4-5, Ativan 1 mg every 4 hours for CIWA score of 6-7, Ativan 2 mg every 3 hours CIWA score of 8-9, and Ativan 2 mg every 2 hours forr CIWA score of 10 or greater. -Thiamine 100 mg daily, and Multivitamin daily, and Folate 1 mg daily -Seizure and fall precautions in place. -Continued close monitoring of electrolytes and replace as needed. -Telemetry monitoring. History of asthma/COPD with continued nicotine dependence, not in acute exacerbation -Continue singular 10 mg daily and Spiriva 1 puff Inhalation daily -Recommend smoking cessation. Orders placed for nicotine patch 21 mg daily. History of anxiety -Continue Lexapro 10 mg daily Data and imaging reviewed: -Vital signs reviewed. Blood pressure 127/71, heart rate 102, respiratory rate 17, temp 98.4 F, and SpO2 of 95% on room air. -Morning labs reviewed. CBC showing WBC count 7.31, hemoglobin 11.8, MCV 101.2, MCH 34.2. BMP showing sodium 134, potassium 4.5, chloride 102, BUN 5.9, cr eatinine 0.8, and blood glucose 86. Magnesium slightly low at 1.7. Liver profile showing elevated ALT of 75. Thank you for allowing us to participate in the care of this pleasant patient. Do not hesitate to contact us with questions. Someone can be reached from the [facility] hospitalist group all hours of the day at [phone] or via [employer] serve. Patient was seen independently by Nurse Pracitioner. This document was prepared using [employer] dictation software. Please allow for errors in alliances consultant, while rare they do occur. . Sachin Kemp NP rendered care for this patient independently, reviewed the findings and plan as documented in the note above. I did not physically speak with or examine the patient on this date. Objective - Vital Signs Vital signs: Vital Signs Temp 98.1 F 06/09/24 07:15 Pulse 76 06/09/24 08:05 Resp 16 06/09/24 07:15 BP 102/67 06/09/24 07:15 Pulse Ox 96 06/09/24 07:15 FiO2 Intake & Output 06/08/24 06/09/24 06/09/24 18:59 06:59 18:59 Output Total 600 Balance -600 Output: Urine 600 Other: Voiding Method Toilet Urinal # Voids 6 - Labs CBC & Chem 7: 06/09/24 04:49 06/09/24 04:49
--- NOTE | 2024-06-09 13:46 | P.PN ---
Progress Note - Text Progress Note Date: 06/09/24 Orthopedic Surgery Risk Review Marquis Bravo is a 33 yo male presenting for closure of his RLE 4 compartment faciiotomy secondary to acute compartment syndrome and intramuscular hematoma. In our visit today we have had a chance to go over subjective complaints, physical examination findings and treatments including the natural course history without intervention and various interventional options. His RLE has swelling about it but it is much better than before release, the wound vac has had decent out put. He is NV intact at this time. I have explained to the patient that this fracture needs stabilization. Based on the patients imaging, physical exam, and the rapid progression and disabling nature of her symptoms, at this time I recommend surgery in the form or a: Revision irrigation and debridement of Right leg with closure of faciiotomy wound. I discussed the risk and benefits of this procedure at length with . Questions were invited and answered, and the patient wishes to proceed as outlined below. Currently, I am recommendin. Revision irrigation and debridement of Right leg with closure of faciiotomy wound. 2. Review of surgical risks and benefits as well as an educational packet on the proposed surgical procedure. Risks: All surgical procedures come with inherent risks, including those related to positioning, anesthesia, intraoperative findings, and postoperative complications. It is important to understand that surgery does not come with any guarantee of a successful outcome as complications and adverse events are always possible. The patient was given a handout discussing the surgical procedure and risks associated with the intervention, both of which were discussed with the patient. These risks include but are not limited to the following: - Experiencing same, different or even worse symptoms compared to before surgery. - Requiring further surgery or other forms of treatment presently or at some time in the future . - On an extreme but fortunately relatively rare basis severe complication such as blindness, stroke, heart attack, temporary and/or permanent nerve injury, paralysis, coma, or may occur, sometimes without known explanation. - Surgical complications may include but are not limited to risk of infection, fluid accumulation in the surgical dissection site, including a seroma or hematoma, that requires additional surgery, wound drainage, bleeding, new numbness or weakness, vision changes/loss, spinal fluid leakage, non-healing and/or infected incision, headaches, difficulty or inability to swallow, hoarseness, hemopneumothorax, pneumothorax, injury to nerves, spinal cord, blood vessels, lymphatics or other vital organs (i.e., bowel injury, injury to the great vessels); heterotopic bone formation; complications related to the hardware such as screws, rods, including misplaced hardware, device failure, hardware fracture/breakage, or hardware loosening; retained surgical instrumentations or devices and the need for further surgery. - Medical risks of the planned surgery include but are not limited to generalized Infections to the whole body or local areas outside of the surgical site (sepsis), heart attack, bleeding, anaphylaxis, meningitis, seizure, epilepsy, hearing loss, burn peterson, laceration of the head or other areas of the body, bruising, hypersensitivity of the skin, bladder over distension; allergic reaction; shoulder injury related to positioning; fat, blood and air clots to other areas of the body like heart, lungs, brain; failure of internal organs such as lungs, kidneys, liver and excessive bleeding. If blood transfusions are necessary, note that transfusions may cause intolerance reactions such as anaphylaxis or other complex reactions. Despite best efforts, the results of surgery might not heal in terms of bone, soft tissues such as skin, fascia, ligaments, and joints. [facility] has multiple operating rooms with single and overlapping rooms running daily. They currently function under the required guidelines as produced by the [facility] with regards to the overlapping rooms and will continue to comply with changes to this policy as they occur. The requirements include and are complied with as follows: (1) the critical portions of the overlapping rooms will not occur at the same time, (2) the attending physician will be physically present during the critical portions of the procedure and immediately available during the entire case, and (3) a back-up attending is designated should the primary attending not be immediately available. The patient has had a chance to review all the listed information, has been given print outs detailing this information, and has had all his/her questions answered to their satisfaction. It was my pleasure to have seen and examined . In our visit today we have had a chance to go over my understanding of our patient's current condition, the natural course history without intervention and various interventional options. Questions were invited and answered, and the patient wishes to proceed as outlined above. I have seen and examined the patient for 25 minutes and we have spent more than 50% of the time in repeat and detailed counseling about the patient's condition, its natural course history with out and as much as can be predicted with surgery and re-review of various surgical treatment options. In conclusion, requested we proceed with the above suggested surgery and are willing to accept risks and limitations of the suggested surgery as nature of the disease process and our best attempts at treatment for the condition. Thank you again for allowing us to be part of your patient's care. Please don't hesitate to contact me if you have any further questions. Signed and authenticated by: Basilio Pollack [facility] [address] [address]
[2024-06-09] MEDS: ceFAZolin 1,000 MG in SODIUM CHLORIDE 0.9% 1,000 ML IRRIGATION ONE (13:59)
--- NOTE | 2024-06-09 14:40 | P.OP ---
Date of Procedure: 06/09/24 Preoperative Diagnosis: Current Active Problems Anterior tibial compartment syndrome of right lower extremity (Acute) Compartment syndrome (Acute) Compartment syndrome of right lower extremity (Acute) Exertional compartment syndrome of right lower extremity (Acute) Intramuscular hematoma (Acute) Postoperative Diagnosis: Current Active Problems Anterior tibial compartment syndrome of right lower extremity (Acute) Compartment syndrome (Acute) Compartment syndrome of right lower extremity (Acute) Exertional compartment syndrome of right lower extremity (Acute) Intramuscular hematoma (Acute) Procedure(s) Performed: RLE irrigation and debridment 25 x 15 x 10 cm skin, soft tissue, muscle and fascia with curette, rongure, skin knife for debridment of tissues. Complex closure of RLE 25 x 15 x 10 cm 3 layer. Application of incisional vac Implants: None Anesthesia: DILSHADA Surgeon: Basilio Null Enrollment Management Manager #1: Latrice Kellogg (Was present and assisted with all aspects of the case from position to dressing placement. ) Estimated Blood Loss (ml): 50 IV fluids (ml): 1,100 Urine output (ml): 0 Pathology: none sent Condition: stable Disposition: PACU Indications for Procedure: Marquis Bravo is a 33 yo male presenting for closure of his RLE 4 compartment faciiotomy secondary to acute compartment syndrome and intramuscular hematoma. In our visit today we have had a chance to go over subjective complaints, physical examination findings and treatments including the natural course history without intervention and various interventional options. His RLE has swelling about it but it is much better than before release, the wound vac has had decent out put. He is NV intact at this time. I have explained to the patient that this fracture needs stabilization. Based on the patients imaging, physical exam, and the rapid progression and disabling nature of her symptoms, at this time I recommend surgery in the form or a: Revision irrigation and debridement of Right leg with closure of faciiotomy wound. I discussed the risk and benefits of this procedure at length with . Questions were invited and answered, and the patient wishes to proceed as outlined below. Currently, I am recommendin. Revision irrigation and debridement of Right leg with closure of faciiotomy wound. Description of Procedure: The patient was seen and examined in the preoperative area. All preoperative protocols were followed. Informed consent was obtained risks and benefits of the procedure were discussed at length. Risks including bleeding infection damage to the surrounding tissue and risk of reoperation were discussed with the patient. Risk of anesthesia up to and including was a discussed with the patient. These are outlined in the risk reviewed. They were willing to accept these risks and all of the risks of surgery. The patient was given a weight- based dose of antibiotics in the form of 2 g Ancef. The patient was seen and evaluated by the anesthesia team who deemed them fit for surgery. The site was marked, the patient was willing to proceed with the procedure. The patient was transferred to the operative suite by the Department of anesthesia. There were then drifted off to sleep by the department of anesthesia and GETA anesthesia was used. Once adequate anesthesia had been obtained the patient was carefully transferred to the operative bed. All bony prominences were padded accordingly. SCDs were placed on the nonoperative lower extremities. Arms were well padded. right lower extremity was exposed placed on a bone foam rampant bump was placed over the right hip. 10:15 this area. Wound VAC dressing was removed. Preoperative briefing was done with the operative team and everyone was ready for the procedure to start. The patients [leg/arm] was then prepped and draped in the normal sterile fashion. Timeout was then performed and all parties in agreement with the procedure to be performed. stay sutures were removed and the wound was inspected it had a good bleeding bed and good bleeding skin edges. Then bluntly dissected and debrided any further hematoma within the intramuscular area of the muscles tested for viable and and contractures. The wound was then irrigated with solution 1 L Irricept and 1 L of normal sterile saline. Wound edges were then approximated with stay sutures again. Vicryl was placed in the deep subcu tissue 2-0 Vicryl in the superficial subcu tissue and 2-0 nylon in a trauma running stitch in the skin. Skin edges approximated very well and everted well. Wound was then cleaned and dressed sterilely a incisional protein a wound VAC was placed on the medial side on the lateral side Adaptic 4 x 4 and ABDs were placed. Tegaderm dressing was placed over this there was good seal of the previous wound VAC then was noted. Leg was then overwrapped with an Chris wrap. The patient was then transferred back to their hospital bed. There were awakened by department of anesthesia having tolerated the procedure very well with no complications. The patient was then transported to the postoperative care unit in stable condition.
[2024-06-09] MEDS: HYDROmorphone 0.5 MG/0.5 ML SYRINGE IVP PRN (15:15)
[2024-06-09] MEDS ORDERED: HYDROmorphone 0.5 MG/0.5 ML SYRINGE IVP PRN (16:15)
[2024-06-09] MEDS: DEXAMETHASONE SOD PHOSPHATE 4 MG/ML 1 ML VIAL IV ONE (16:52)
[2024-06-09] MEDS: MAGNESIUM SULFATE-D5W PMX 1 GM in DEXTROSE/WATER 1 100ML.BAG IVPB SCH (17:29)
[2024-06-09] MEDS: LACTATED RINGERS 1,000 ML IV SCH (17:46)
--- NOTE | 2024-06-10 10:20 | P.PN ---
Subjective Progress Note Date: 06/10/24 Principal diagnosis: Trauma right lower extremity injury Compartment syndrome right lower extremity Patient seen and examined this morning. Patient is sitting up in bed. He rep orts that his pain is managed on current regimen. Discussed with patient that we will be discontinuing [employer], need to encourage use of oral pain medication. Patient does report tenderness and aching pain to the right knee and ankle. X- rays will be ordered. Patient is ok to work with physical therapy for crutch training. NWB of the right lower extremity. Dressing is CDI with Prevena wound vac patent. Patient is progressing towards possible discharge later today. Objective - Vital Signs Vital signs: Vital Signs Temp 97.6 F 06/10/24 07:16 Pulse 70 06/10/24 09:01 Resp 16 06/10/24 07:16 BP 121/74 06/10/24 07:16 Pulse Ox 98 06/10/24 07:16 FiO2 Intake & Output 06/09/24 06/10/24 06/10/24 18:59 06:59 18:59 Intake Total 1651 Output Total 1250 Balance 401 Weight 95.254 kg Intake: IV 1651 Output: Urine 1200 Estimated Blood Loss 50 Other: Voiding Method Urinal - Exam Inspection: Chris bandages present to the right lower extremity. Prevena wound VAC is patent. Sensation: Sensation is equal, symmetric, bilaterally intact throughout the lower extremities Palpation: Compartments remain soft and compressible Range of motion: Patient does have full range of motion bilateral upper and lower extremities on exam Motor: 5/5 in all major motor groups in the bilateral upper and left lower extremities, 4/5 Right lower extremity due to surgical procedure and pain. Special tests: Negative Homans bilaterally. Negative Kirk bilaterally. Negative clonus bilaterally. Neurovascular: Radial pulse intact, 2+ bilaterally. Cap refill under 3 seconds in digits upper extremities. - Labs CBC & Chem 7: 06/09/24 04:49 06/09/24 04:49 Assessment and Plan Assessment: Postop Day 1: I&D right lower extremity with closure Postop Day 3: status post 4 compartment fasciotomy right lower extremity, hematoma evacuation with wound vac placement Plan: -Appreciate team management. -Activity: Ambulate as tolerated, NWB Right lower extremity. -Daily PT/OT, crutch training and increase ambulation strength and balance. -Pain control: Adequate at this time -Meds: reviewed -GI ppx: senna, Miralax -DVT PPX: OK to restart Heparin tonight -Hygiene: Maintain incision and dressing clean and dry -Wound Vac: Maintain for now, may possibly remove later today. -Encourage IS 10x/hr -Dispo: Anticipate discharge home today vs tomorrow with homecare *I reviewed and discussed this case with my attending Dr. Null, whom has reviewed this chart and films and is in agreement with assessment and plan of care as outlined above. I have personally seen and examined the patient, performed the documentation and the assessment and plan as written. Number of minutes spent on the visit: 20m.
--- NOTE | 2024-06-10 11:25 | XR ---
EXAMINATION TYPE: XR knee limited RT DATE OF EXAM: 06/10/2024 COMPARISON: NONE HISTORY: A TECHNIQUE: Two views are submitted. FINDINGS: Joint spaces are preserved. Osseous structures are intact. No acute fracture seen. A tiny amount o f fluid in the suprapatellar bursa. IMPRESSION: 1. No acute fracture or dislocation. If concern for internal derangement of the knee consider MRI.
--- NOTE | 2024-06-10 11:40 | XR ---
EXAMINATION TYPE: XR ankle limited 2 views RT DATE OF EXAM: 06/10/2024 Comparison: 06/06/2024 Clinical History: 33-year-old male pain after volleyball injury, Injury to RLE Findings: There are couple surgical clips in the posterior soft tissues of the distal third leg. Os trigonum no jerry. No delineation to the Achilles tendon. Subtalar joint is aligned. On these 2 views of the ankle, no evident incongruence of the ankle mortise. There is either projectional artifact. A subtle 3 mm o steochondral defect at the medial talar dome. Impression: 1. Only 2 views provided. Either projectional artifact or a tiny 3 mm OCD medial talar dome. Consider the addition of a mortise view. 2. Otherwise, no additional acute osseous abnormality seen.
--- NOTE | 2024-06-10 12:50 | P.DS ---
Providers Date of admission: 06/06/24 18:59 Expected date of discharge: 06/10/24 Attending physician: Basilio Null DO Consults: 06/06/24 21:34 Consult Physician Urgent Consulting Provider: Rajat Barr Consult Reason/Comments: medical management Do you want consulting provider notified?: Yes Primary care physician: Physician Nonstaff Hospital Course: Hospital Course: The patient was evaluated preoperatively and found to have the diagnosis of right lower extremity compartment syndrome. They underwent appropriate preoperative care and were willing to undergo the intended procedure. They underwent a successful right lower extremity fasciotomy were recovered appropriately and sent to the floor. While on the floor they worked with physical therapy, occupational therapy and nursing to enhance their recovery experience. Their pain was well controlled through their stay and they were started on appropriate medications, DVT ppx modalities, activity and dietary ne eds. Daily labs were monitored closely, and transfusions were only used when necessary. Medicine as well as other consulting services have made their input and have helped with our team approach and multidisciplinary care. PT milestones have been met and passed and they have made the recommendation of home with home care for this patient and treating providers agree with this care path. The patient will be discharged home with appropriate medications, instructions and follow-up information and in stable condition. Patient Condition at Discharge: Good Plan - Discharge Summary New Discharge Prescriptions: New Gabapentin 300 mg PO TID #60 cap Sulfamethox-Tmp 800-160Mg [Bactrim DS 800-160 mg] 1 tab PO Q12HR #20 tab Cyclobenzaprine [Flexeril] 10 mg PO TID PRN #30 tab PRN Reason: Muscle Spasm oxyCODONE HCL [OxyIR] 5 mg PO Q4-6H PRN #28 tab PRN Reason: Pain No Action Tiotropium Forks [Spiriva Handihaler] 1 cap INHALATION RT-DAILY Menthol [Icy Hot] 1 patch TRANSDERM DIRECTED PRN PRN Reason: Pain Chlorpheniramine Maleate [Chlor-Trimeton] 4 mg PO Q4HR PRN PRN Reason: Allergy Symptoms Fluticasone Nasal [place] [Flonase Nasal [place]] 2 spray EA NOSTRIL DAILY Albuterol Nebulized [Ventolin Nebulized] 2.5 mg INHALATION RT-BID PRN PRN Reason: Shortness Of Breath Ibuprofen [Motrin Ib] 600 mg PO Q6H PRN PRN Reason: Fever And/ Or Pain Albuterol Nebulized [Ventolin Nebulized] 2.5 mg INHALATION RT-BID Omeprazole 40 mg PO DAILY Montelukast [Singulair] 10 mg PO DAILY Escitalopram [Lexapro] 10 mg PO DAILY Albuterol Inhaler [Ventolin Hfa Inhaler] 1 puff INHALATION RT-QID PRN PRN Reason: Shortness Of Breath Fluticasone Propion/Salmeterol [Advair 500-50 Diskus] 1 puff INHALATION RT- BID Discharge Medication List Albuterol Inhaler [Ventolin Hfa Inhaler] 1 puff INHALATION RT-QID PRN 06/06/24 [History] Albuterol Nebulized [Ventolin Nebulized] 2.5 mg INHALATION RT-BID PRN 06/06/24 [History] Chlorpheniramine Maleate [Chlor-Trimeton] 4 mg PO Q4HR PRN 06/06/24 [History] Escitalopram [Lexapro] 10 mg PO DAILY 06/06/24 [History] Fluticasone Nasal [place] [Flonase Nasal [place]] 2 spray EA NOSTRIL DAILY 06/06/24 [History] Menthol [Icy Hot] 1 patch TRANSDERM DIRECTED PRN 06/06/24 [History] Montelukast [Singulair] 10 mg PO DAILY 06/06/24 [History] Omeprazole 40 mg PO DAILY 06/06/24 [History] Tiotropium Forks [Spiriva Handihaler] 1 cap INHALATION RT-DAILY 06/06/24 [History] Albuterol Nebulized [Ventolin Nebulized] 2.5 mg INHALATION RT-BID 06/07/24 [History] Fluticasone Propion/Salmeterol [Advair 500-50 Diskus] 1 puff INHALATION RT-BID 06/07/24 [History] Ibuprofen [Motrin Ib] 600 mg PO Q6H PRN 06/07/24 [History] Cyclobenzaprine [Flexeril] 10 mg PO TID PRN #30 tab 06/10/24 [Rx] Gabapentin 300 mg PO TID #60 cap 06/10/24 [Rx] Sulfamethox-Tmp 800-160Mg [Bactrim DS 800-160 mg] 1 tab PO Q12HR #20 tab 06/10/24 [Rx] oxyCODONE HCL [OxyIR] 5 mg PO Q4-6H PRN #28 tab 06/10/24 [Rx] Follow up Appointment(s)/Referral(s): Nonstaff,Physician [Primary Care Provider] - 1-2 days Ambulatory/Diagnostic Orders: Crutches [[email or web address]] Location: None Selected Patient Instructions/Handouts: Seizure/Epilepsy Discharge Instructions & Follow-Up Activity/Diet/Wound Care/Special Instructions: Activity: Ambulate as tolerated with walker, nonweightbearing of the right lower extremity. Patient is to wear walking boot while up and about. Wound care: Patient may remove dressing in 2 days. He may shower, allow soapy water to run over the incision and pat dry. Once there is no drainage he may leave incisions open to air. Dressings to include 4 x 4 gauze with Kerlix wrap. Keep incisions clean and dry. No lotions, ointments, or oils. Pain management: Take medications as directed, ice and elevate as needed. No heat. Follow-up: Patient may follow-up in [address] Null's office. Please contact our office with any questions or concerns [phone], choose option #3 Discharge Disposition: HOME WITH HOME HEALTH SERVICES
[2024-06-10 14:13] VITALS: BP 102/62; TEMP 97.7
--- NOTE | 2024-06-10 14:55 | P.PN ---
Subjective Progress Note Date: 06/10/24 Hospital course: Patient is a 33-year-old male with a past medical history of chronic daily alcohol abuse, daily marijuana use and asthma/COPD with continued nicotine dependence. He is currently admitted under orthopedic surgery team status post right lower extremity fasciotomy secondary to compartment syndrome. Patient underwent right lower extremity fasciotomy on 06/06/2024 after diagnosis of acute exertional right lower extremity compartment syndrome. We were consulted for medical management throughout hospitalization. Physical exam: Patient seen and fully evaluated at bedside. He reports right lower extremity pain continues but has improved and states swelling has also improved. Patient denies having any other complaints or needs at this time. Vital signs reviewed and stable. General: Nontoxic, no distress and appears stated age. Derm: Skin warm and dry, normal coloration for ethnicity. Head: Atraumatic, normocephalic and symmetric. Eyes: EOM's intact, no lid lag, and anicteric sclera Mouth: no lip lesions, mucus membranes moist Cardiovascular: regular rate and rhythm with normal S1S2, no murmur, positive posterior tibial pulses bilaterally, and cap refill < 2 seconds. Lungs: Respirations even, regular, and unlabored on room air. Lungs CTA bilaterally, no rhonchi, no rales, no wheezing, and no accessory muscle usage. Abdominal: soft, nontender to palpation, no guarding, no appreciable organomegaly Ext: Movement and sensation intact. No gross muscle atrophy, no edema, no contractures. Wound VAC in place right lower extremity with mild right sided lower extremity edema and bruising. Neuro: Speech clear, face symmetrical and CN II-XII grossly intact with no noted focal neuro deficits Psych: Alert and oriented to person, place, time, and situation. Appropriate and pleasant affect. Assessment and Plan of Care: Patient is a 33-year-old male with with chronic alcohol abuse, was admitted here due to right lower extremity swelling secondary to acute compartment syndrome. Patient status post right lower extremity fasciotomy postop day 3. Acute exertional right lower extremity compartment syndrome Status post right lower extremity fasciotomy -Management per primary admitting orthopedic surgery team including DVT prophylaxis, pain management, dressing and wound VAC management, weightbearing, and PT/OT. -Patient underwent revision I&D 06/09/2024 with closure of fasciotomy wound. Pruritus, unknown etiology -No signs of allergic reaction or anaphylaxis -Continue to monitor symptoms -Continue oral Benadryl 25 mg every 6 hours as needed for itching Chronic alcohol abuse Normal anion gap metabolic acidosis, likely secondary to daily alcohol abuse Mild hyponatremia, likely secondary to daily alcohol abuse -Continue monitoring of CIWA scores and patient to be medicated with Ativan 0.5 mg every 4 hours as needed for CIWA score of 4-5, Ativan 1 mg every 4 hours for CIWA score of 6-7, Ativan 2 mg every 3 hours CIWA score of 8-9, and Ativan 2 mg every 2 hours forr CIWA score of 10 or greater. -Thiamine 100 mg daily, and Multivitamin daily, and Folate 1 mg daily -Seizure and fall precautions in place. -Continued close monitoring of electrolytes and replace as needed. -Telemetry monitoring. History of asthma/COPD with continued nicotine dependence, not in acute exacerbation -Continue singular 10 mg daily and Spiriva 1 puff Inhalation daily -Recommend smoking cessation. Orders placed for nicotine patch 21 mg daily. History of anxiety -Continue Lexapro 10 mg daily Data and imaging reviewed: -Vital signs reviewed. Blood pressure 121/74, heart rate 70, respiratory rate 16, temp 97.6 F, and SpO2 of 98% on room air. Patient is medically optimized and cleared from medical perspective once cleared by primary admitting orthopedic surgery team. Thank you for allowing us to participate in the care of this pleasant patient. Do not hesitate to contact us with questions. Someone can be reached from the [facility] [place] hospitalist group all hours of the day at [phone] or via perfect serve. Patient was seen independently by Nurse Pracitioner. This document was prepared using [employer] dictation software. Please allow for errors in bonsai tender, while rare they do occur. . I reviewed the documentation as provided by the CRISTINO above, who is the original author of this note. I agree with the documented assessment and plan, with the following changes: none Objective - Vital Signs Vital signs: Vital Signs Temp 97.6 F 06/10/24 07:16 Pulse 70 06/10/24 07:16 Resp 16 06/10/24 07:16 BP 121/74 06/10/24 07:16 Pulse Ox 98 06/10/24 07:16 FiO2 Intake & Output 06/09/24 06/10/24 06/10/24 18:59 06:59 18:59 Intake Total 1651 Output Total 1250 Balance 401 Weight 95.254 kg Intake: IV 1651 Output: Urine 1200 Estimated Blood Loss 50 Other: Voiding Method Urinal - Labs CBC & Chem 7: 06/09/24 04:49 06/09/24 04:49 Labs: Abnormal Lab Results - Last 24 Hours (Table) 06/09/24 06/09/24 Range/Units 04:49 04:49 RBC 3.45 L (4.40-5.60) X 10*6/uL Hgb 11.8 L (13.0-17.0) g/dL Hct 34.9 L (39.6-50.0) % MCV 101.2 H (80.0-97.0) FL MCH 34.2 H (27.0-32.0) pg Sodium 134 L (135-145) mmol/L BUN 5.9 L (9.0-27.0) mg/dL BUN/Creatinine Ratio 7.38 L (12.00-20.00) Ratio ALT 75 H (10-49) U/L Total Protein 6.1 L (6.2-8.2) g/dL
[2024-06-10 19:32] VITALS: PULSE 78
== END 2024-06-10 19:38 | disposition home health service (06) | DRG 313 ==
LOC: EC 17:16 → 4SSUR 18:59
PROVIDERS: ADMIT Orthopaedic Surgery; ATTEND Orthopaedic Surgery
PROC: 0KBS0ZZ Excision of Right Lower Leg Muscle, Open Approach (ICD-10-PCS; 2024-06-06)
PROC: 7W06X1Z Osteopathic Treatment of Lower Extremities using Fascial Release (ICD-10-PCS; 2024-06-06)
PROC: 0KNS0ZZ Release Right Lower Leg Muscle, Open Approach (ICD-10-PCS; 2024-06-06)
PROC: 0KNS0ZZ Release Right Lower Leg Muscle, Open Approach (ICD-10-PCS; 2024-06-06)
PROC: 0KNS0ZZ Release Right Lower Leg Muscle, Open Approach (ICD-10-PCS; 2024-06-06)
PROC: 0KNS0ZZ Release Right Lower Leg Muscle, Open Approach (ICD-10-PCS; 2024-06-06)
PROC: 0K9 Muscles, Drainage (ICD-10-PCS; 2024-06-06)
PROC: 0KDS0ZZ Extraction of Right Lower Leg Muscle, Open Approach (ICD-10-PCS; 2024-06-09)
PROC: 0YQH0ZZ Repair Right Lower Leg, Open Approach (ICD-10-PCS; principal; 2024-06-09 11:40)
DX: T79.A21A Traumatic compartment syndrome of right lower extremity, initial encounter (principal); E87.20 Acidosis, unspecified; E87.1 Hypo-osmolality and hyponatremia; J44.89 Other specified chronic obstructive pulmonary disease; F10.10 Alcohol abuse, uncomplicated; F17.210 Nicotine dependence, cigarettes, uncomplicated; S80.11XA Contusion of right lower leg, initial encounter; G47.33 Obstructive sleep apnea (adult) (pediatric); L29.9 Pruritus, unspecified; F41.9 Anxiety disorder, unspecified; Y93.68 Activity, volleyball (beach) (court); Z79.51 Long term (current) use of inhaled steroids; Z79.899 Other long term (current) drug therapy; Z91.013 Allergy to seafood
CPT/HCPCS: 36415; 80048; 80053; 83735; 85025; 85027; 85610; 85730; 94640; 94660; 99291